=== PATIENT | female | born 1980 ===

== ENCOUNTER 2020-08-08 12:15 | Inpatient (IN) | payer OTHER ==
[~2020-08-08] VITALS: Ht 162.6 cm; Wt 3.6 kg
[2020-08-22] MEDS ORDERED: PRENATAL TABLE1 EAC1 PO (12:32)
[2020-08-22] MEDS ORDERED: LABETALOL HCL100 MG PO (12:32)
[2020-08-25] MEDS ORDERED: OXYC1TAB9 PO (10:09)
[2020-08-25] MEDS ORDERED: KETO10TA2 PO (10:10)
== END 2020-08-25 13:15 | disposition home or self-care (01) | DRG 787 ==
LOC: OB/GYN 08-19 12:15 → LDR 08-22 12:11 → O/R 08-22 14:24 → SURG-SUITE 08-22 15:59
PROVIDERS: ADMIT Obstetrics & Gynecology Maternal & Fetal Medicine; ATTEND Obstetrics & Gynecology Maternal & Fetal Medicine
PROC: 4A1HXFZ Monitoring of Products of Conception, Cardiac Rhythm, External Approach (ICD-10-PCS; 2020-08-22)
PROC: 10D00Z1 Extraction of Products of Conception, Low, Open Approach (ICD-10-PCS; principal; 2020-08-22 12:00)
DX: O66.2 Obstructed labor due to unusually large fetus (principal); O41.03X0 Oligohydramnios, third trimester, not applicable or unspecified; O62.2 Other uterine inertia; Z3A.40 40 weeks gestation of pregnancy; Z37.0 Single live birth

== ENCOUNTER 2020-08-12 09:38 | Outpatient (CLI) | payer OTHER | END 2020-08-12 10:21 | disposition home or self-care (01) | LOC: NST 09:38 | PROVIDERS: ATTEND Obstetrics & Gynecology | DX: Z34.83 Encounter for supervision of other normal pregnancy, third trimester (principal) ==

== ENCOUNTER 2020-08-19 10:12 | Outpatient (CLI) | payer OTHER | END 2020-08-19 11:03 | disposition home or self-care (01) | LOC: NST 10:12 | PROVIDERS: ATTEND Obstetrics & Gynecology Maternal & Fetal Medicine | DX: O48.0 Post-term pregnancy (principal) ==

== ENCOUNTER 2020-08-22 09:49 | Outpatient (CLI) | payer OTHER ==
[2020-08-22] MEDS ORDERED: LABETALOL HCL100 MG PO (12:32)
[2020-08-22] MEDS ORDERED: PRENATAL TABLE1 EAC1 PO (12:32)
== END 2020-08-22 10:43 | disposition home or self-care (01) ==
LOC: NST 09:49
PROVIDERS: ATTEND Obstetrics & Gynecology Maternal & Fetal Medicine
DX: Z34.83 Encounter for supervision of other normal pregnancy, third trimester (principal)